=== PATIENT | female | born 1990 | race Caucasian/White ===

== ENCOUNTER 2020-04-06 06:30 | Inpatient (IN) ==
[2020-04-06] MEDS ORDERED: BETADINE SOLN ONE (06:50)
[2020-04-06] MEDS ORDERED: D5 1/2 NS 1L W PITOCIN 20 UNITS/L 20 UNITS/1,000 ML BAG IV ONE (06:51)
[2020-04-06] MEDS ORDERED: MORPHINE SULFATE INJ 2 MG INJ IVP PRN (06:52)
[2020-04-06] MEDS ORDERED: PITOCIN IVP ONE (06:52)
[2020-04-06] MEDS ORDERED: D5LR 1L W PITOCIN 10 UNITS/L 10 UNITS/1,000 ML BAG IV PRN (06:52)
[2020-04-06] MEDS ORDERED: REGLAN INJ 10 MG VIAL IVP PRN (06:52)
[2020-04-06] MEDS ORDERED: PHENERGAN INJ 25 MG IM PRN ×2 (06:52→15:43)
[2020-04-06] MEDS ORDERED: D5 1/2 NS 1000 ML 1,000 ML IV SCH (06:52)
[2020-04-06] MEDS ORDERED: NUBAIN INJ 200 MG VIAL MULTIDOSE IVP PRN (06:52)
[2020-04-06] MEDS ORDERED: FENTANYL INJ 100 mcg ONE ×2 (09:04→09:48)
[2020-04-06] MEDS ORDERED: LR 1000 ML IV 1,000 ML IV ONE (09:04)
[2020-04-06] MEDS ORDERED: FENTANYL 2 mcg/mL-ROPIV 0.1%-NS EPIDURAL 200 ML EPI ONE (09:06)
[2020-04-06] MEDS ORDERED: NAROPIN EPIDURAL 0.2% 100 ML ONE (09:48)
--- NOTE | 2020-04-06 09:56 | DR.OB ---
OB Quick Note - Assessment/Plan Assessment/Plan: L&D 04/06/20 at 7:30am S-No complaint. O-Afebrile,VSS JFT=470 with good LTV, +accel, no decel. CTX=q 2 1/2 to 3 min., mild by palpation CVX=2cm/50%/-1/VTX AROM with clear fluid. IUPC and FSE placed. A-IUP at 38 3/7 weeks for induction A1DM Hep C Opioid abuse P-Begin pitocin induction Anticipate
--- NOTE | 2020-04-06 12:18 | DR.OB ---
OB Quick Note - Assessment/Plan Assessment/Plan: L&D 04/06/20 at 12:10pm Pitocin=4mu/min. S-No complaint. O-Afebrile,VSS FCQ=891 with good LTV, +accel, no decel. CTX=q 1 1/2 to 2 min., about 45-55mmHg CVX=3cm/75%/0 A-IUP 38 3/7 weeks for induction A1DM HepC Opioid abuse P-Cont. pitocin induction Anticipate
--- NOTE | 2020-04-06 15:43 | DR.OB ---
OB Quick Note - Assessment/Plan Assessment/Plan: Delivery Note [employer] OF TECHNOLOGY 04/06/20 at 3:29pm Patient complete and pushing. Head delivered over intact perineum. Nuchal cord x 1 reduced. Nose and mouth bulb suctioned. Body delivered over intact perineum. Compound presentation with left hand to head. Cord clamped x 2 and cut. handed to attendant. Cord sent for gases. Placenta delivered spontaneously / intact / 3 vessel cord. No CVX / vaginal / perineal tear. Viable male infant, VTX/OA, wt=6'2" and 8/9, stable to NBN. Mother stable to RR. SDC=[id number].
[2020-04-06] MEDS ORDERED: D5 1/2 NS 1000 ML 1,000 ML with PITOCIN 20 UNITS IV SCH ×2 (16:00)
[2020-04-06] MEDS ORDERED: AMBIEN PO PRN (17:27)
[2020-04-06] MEDS ORDERED: DERMOPLAST PAIN RELIEF SPRAY TOP PRN (17:27)
[2020-04-06] MEDS ORDERED: MILK OF MAGNESIA PO PRN (17:27)
[2020-04-06] MEDS ORDERED: ADACEL or BOOSTRIX TDaP VACCINE IM ONE (17:27)
[2020-04-06] MEDS: KLONOPIN TAB 1 MG PO SCH (20:59)
[2020-04-06] MEDS: MOTRIN TAB 800 MG PO PRN (21:00)
[2020-04-06] MEDS: SUBOXONE TAB SL SCH (21:01)
[2020-04-07 05:29] LABS: HEMOGLOBIN 12.3 g/dL (12.0-16.0)
[2020-04-07] MEDS: KLONOPIN TAB 1 MG PO SCH ×2 (08:34→20:45)
[2020-04-07] MEDS: PRENATAL PLUS PO SCH (08:35)
[2020-04-07] MEDS: SUBOXONE TAB SL SCH ×3 (08:41→21:13)
[2020-04-07] MEDS: MOTRIN TAB 800 MG PO PRN ×2 (11:33→21:00)
[2020-04-08 08:38] VITALS: BP 102/62
[2020-04-08] MEDS: PRENATAL PLUS PO SCH (09:24)
[2020-04-08] MEDS: KLONOPIN TAB 1 MG PO SCH (09:24)
[2020-04-08] MEDS: SUBOXONE TAB SL SCH (10:55)
[2020-04-08] MEDS ORDERED: ADACEL or BOOSTRIX TDaP VACCINE IM ONE (13:00)
== END 2020-04-08 12:24 | disposition home or self-care (01) | DRG 806 ==
LOC: LD 06:37 → MED/SURG 17:15 → UNDODISIN 04-08 11:15
PROVIDERS: ADMIT Specialist; ATTEND Specialist
DX: B19.20 Unspecified viral hepatitis C without hepatic coma; F11.90 Opioid use, unspecified, uncomplicated; Z37.0 Single live birth; O98.42 Viral hepatitis complicating childbirth; Z23 Encounter for immunization; O99.323 Drug use complicating pregnancy, third trimester; Z3A.38 38 weeks gestation of pregnancy; O24.410 Gestational diabetes mellitus in pregnancy, diet controlled

== ENCOUNTER 2023-11-15 19:04 | Inpatient (IN) ==
--- NOTE | 2023-11-15 20:18 | DR.EXTPAIN ---
HPI Time seen Time Seen by Provider: 11/15/23 20:10 PCP Primary Care Physician: Dr. Latham Complaint/Symptoms Chief Complaint Doctor Comments: Patient has had an abscess x 2 months in her Distal Rt forearm. Patient has chronic swelling x 2 yrs in he Bilateral hands. She states that Dr Latham states that she has an autoimmune condition that he is trying to diagnose. Patient states that she has been given bactrim DS x 1 month but the the ulcers are still present.Patient denies: fever, extremity weakness, extremity numbness, extremity paresthesias. Chief Complaint:: C/O Abcess to Right Lower Lateral Arm Self Treatment fo Chief Complaint: Went to see MD today and sent to ED Source History Provided: Patient Mode of arrival Mode of Arrival: Ambulatory Timing Onset of Chief Complaint: 09/06/23 PMH PMH Past Medical History: Yes Past Medical History: Depression Past Medical History Comment: Blood Past Surgical History: Yes Surgical History: Ortho Surgery Past Surgical History Comment: Bilateral Hip Replacement Family History History of Family Medical Conditions: Yes Family Medical History: Cancer Social History Do you use any recreational Drugs:: No Infectious screening Have you traveled outside the country in the last 6 months?: Yes ([facility]) Travel History Location: Pt. traveled to the [facility] in September Isolation: Standard ROS Review of Systems Constitutional: No Symptoms Reported Eyes: No Symptoms Reported ENTM: No Symptoms Reported Respiratoy: No Symptoms Reported Cardiovascular: No Symptoms Reported Gastrointestinal/Abdominal: No Symptoms Reported Genitourinary: No Symptoms Reported Neurological: No Symptoms Reported Musculoskeletal: Forearm (distal Rt forearm ulcers (2)) Integumentary: No Symptoms Reported Hematologic/Lymphatic: No Symptoms Reported Endocrine: No Symptoms Reported Psychiatric: No Symptoms Reported All Other Systems: Reviewed and Negative PE Vital Signs Vitals: Vital Signs Temperature 98.9 F Pulse Rate 77 Respiratory Rate 20 Blood Pressure 111/70 O2 Sat by Pulse Oximetry 95 General Limitations: No Limitations General Appearance: Alert and In No Apparent Distress Head Head Exam: Normal Inspection Eyes Eye exam: Normal Appearance ENT ENT Exam: Normal Exam Neck Neck Exam: Normal Inspection Chest Chest Inspection: Normal Inspection Respiratory Respiratory Exam: Normal Lung Sounds Bilat Respiratory Exam: Bilateral: Clear to Auscultation Cardiovascular Cardiovascular Exam: Regular Rate and Normal Rhythm Abdominal Exam Abdominal Exam: Normal Inspection, Normal Bowel Sounds and Soft Extremities Extremities Exam: Tenderness (Rt distal Forearm) and Other (erythema Rt distal forearm and ulcerated lesions Flexor aspect of Rt distal forearm) Upper Extremities Forearm Exam: Tenderness (Rt distal), Erythema (Rt distal) and Other (2 ulcerations Rt distal) Back Back Exam: Normal Inspection Neurological Neurological Exam: Alert, Oriented X3 and CN II-XII Intact Psychiatric Psychiatric Exam: Normal Affect and Normal Mood Skin Skin Exam: Warm, Dry, Intact and Normal Color MDM Differential Diagnosis Differential Diagnosis: Other (cellulitis,abscess) COURSE Treatment Treatment: Dr Barraza was called to initiate iv access in Patient.He states that he will admit her to his service for debridement of the Rt distal forearm tomorrow.She will get Rocephin 1 gram im in ED. He would like patient to be NPO after midnight. Attempts were made to get iv access and labs drawn. Patient will get a picc line tomorrow and labs will be drawn at that time. Opioid Opioid Risk Tool Age (Sreedhar box if 16-45): Yes History of Preadolescent Sexual Abuse: No Total: 1 Total Score Risk Category: Low Risk Copyright: Brandon ROMERO predicting aberrant behaviors Discharge Plan Diagnosis Discharge Problem: Abscess of right forearm Discharge Plan Patient Disposition: 09 ADMITTED INPATIENT Condition: Stable Prescriptions: No Action oxycodone 10 mg tablet 10 mg PO Q6H PRN (Reason: pain) polyethylene glycol 3350 [ClearLax] 17 gram/dose powder 17 g PO QDAY furosemide 20 mg tablet 20 mg PO QDAY docusate sodium [Stool Softener] 100 mg capsule 100 mg PO BID methocarbamol 750 mg tablet 750 mg PO TID potassium chloride 20 mEq tablet,ER particles/crystals 20 meq PO QDAY citalopram 20 mg tablet 20 mg PO QDAY clonazepam 1 mg tablet 1 mg PO BID zinc sulfate 50 mg zinc (220 mg) tablet 50 mg PO QDAY Eliquis 2.5 mg tablet 2.5 mg PO BID ascorbic acid (vitamin C) 500 mg tablet 500 mg PO QDAY trazodone 50 mg tablet 50 mg PO QPM gabapentin 300 mg capsule 300 mg PO TID calcium carbonate-vitamin D3 250 mg-3.125 mcg (125 unit) tablet 1 tab PO BID ondansetron HCl 8 mg tablet 8 mg PO BID PRN citalopram 20 mg tablet 20 mg PO QDAY naproxen 500 mg tablet 500 mg PO BID ergocalciferol (vitamin D2) [Vitamin D2] 1,250 mcg (50,000 unit) Capsule 1,250 mcg PO QWEEK clindamycin HCl [Cleocin HCl] 300 mg capsule 300 mg PO Q6H Qty: 40 0RF hydrocodone-acetaminophen 10-325 mg tablet 1 tab PO Q6H MDD 4 Qty: 20 0RF Health Concerns: Post Hospitalization: new medications and changes needed to prevent readmission or further decline. Pt educated and given instructions on all concerns. Plan of Treatment: Continue with present treatment and follow up plan. Pt is to keep follow up appointment as instructed and take medications as ordered. Orders to Discharge Patient Discharge Orders: Transfer (Routine); Ordered 11/15/23 Ordered By: Cyndy Crane Follow ups/Referrals Follow ups/Referrals: NFD,None [Primary Care Provider] - 3 days Instructions Stand Alone Forms: Post Hospital Follow Up Care
[2023-11-15] MEDS: MAXIPIME VIAL 2 GRAMS 2 G in NS 100 ML IV 100 ML IV ONE (21:46)
[2023-11-15] MEDS: STERILE WATER IRRIGATION IR ONE (21:53)
[2023-11-15] MEDS: HYDROGEN PEROXIDE 3% EXT ONE (21:53)
[2023-11-15] MEDS: BACTROBAN TOPICAL OINT TOP ONE (21:53)
[2023-11-15] MEDS: ROCEPHIN VIAL 1 GRAM IM ONE (22:11)
[2023-11-15 22:59] LABS: BASOPHILS % (AUTO) 0.5 % (0.2-1.0); EOSINOPHILS # (AUTO) 0.1 x10^3/uL (0.0-0.2); HEMATOCRIT 35.8 % (36.0-47.0); HEMOGLOBIN 11.7 g/dL (12.0-16.0); LYMPHOCYTES # (AUTO) 2.1 X10^3/uL (1.3-2.9); LYMPHOCYTES % (AUTO) 26.2 % (21.0-51.0); MEAN CORPUSCULAR HEMOGLOBIN 28.6 pg (27.0-34.0); MEAN CORPUSCULAR HGB CONC 32.7 g/dL (33.0-35.0); MEAN CORPUSCULAR VOLUME 87.5 fL (80.0-100.0); MEAN PLATELET VOLUME 7.6 fL (7.4-11.0); MONOCYTES # (AUTO) 0.8 x10^3/uL (0.3-0.8); MONOCYTES % (AUTO) 9.7 % (0.0-13.0); NEUTROPHILS % (AUTO) 62.6 % (42.0-75.0); PLATELET COUNT 259 X10^3/uL (150.0-450.0); RED BLOOD COUNT 4.09 X10^6/uL (3.5-5.4); RED CELL DISTRIBUTION WIDTH 15.5 % (11.6-16.5); WHITE BLOOD COUNT 7.9 X10^3/uL (3.6-10.0)
[2023-11-15 23:08] LABS: ALANINE AMINOTRANSFERASE 23 Units/L (12-78); ALKALINE PHOSPHATASE 67 Units/L (46-116); ASPARTATE AMINO TRANSFERASE 20 Units/L (15-37); BLOOD UREA NITROGEN 20 mg/dL (7-18); CALCIUM 8.8 mg/dL (8.5-10.1); CARBON DIOXIDE 25.3 mmol/L (21-32); CHLORIDE 105 mmol/L (98-107); COR NA(FOR HYPERGLY) 141 mmol/L (136-145); CREATININE 1.16 mg/dL (0.55-1.02); GLUCOSE 121 mg/dL (65-99); POTASSIUM 3.8 mmol/L (3.5-5.1); SODIUM 140 mmol/L (136-145); TOTAL PROTEIN 7.7 g/dL (6.4-8.2); eGFR NON BLACK RACES 57 (>60)
[2023-11-15 23:23] VITALS: BMI 32.2
[2023-11-16] MEDS ORDERED: PERCOCET TAB 5/325 MG PO PRN (07:08)
[2023-11-16] MEDS: PERCOCET TAB 5/325 MG ONE (07:14)
[2023-11-16] MEDS: NEURONTIN CAP 300 MG PO SCH (07:15)
[2023-11-16] MEDS: NOZIN NASAL SANITIZER TP ONE (07:41)
[2023-11-16] MEDS: NS 1,000 ML IV 1,000 ML ONE (07:42)
[2023-11-16] MEDS ORDERED: ZOFRAN TAB 4 MG PO PRN (08:00)
[2023-11-16] MEDS: XYLOCAINE 1 % (PLAIN) ONE ×2 (08:39→09:27)
[2023-11-16] MEDS ORDERED: CELEXA PO SCH (09:00)
[2023-11-16] MEDS ORDERED: KETAMINE HCL ONE (09:15)
[2023-11-16] MEDS: DIPRIVAN VIAL 20 ML ONE (09:15)
[2023-11-16] MEDS: ANCEF VIAL 1 GRAM ONE (09:15)
[2023-11-16] MEDS: FENTANYL VIAL INJ 100 mcg ONE (09:15)
[2023-11-16] MEDS: VERSED ONE (09:15)
[2023-11-16] MEDS: NS 100 ML IV 100 ML ONE (09:15)
[2023-11-16] MEDS: BETADINE SOLN ONE (09:20)
[2023-11-16] MEDS: POLYMYXIN B SULFATE ONE (09:29)
[2023-11-16] MEDS: VANCOMYCIN IV *PREMIX 1 G/200 ML BAG 1 G/200 ML PIGGYBACK IV SCH (10:01)
--- NOTE | 2023-11-16 10:01 | RAD ---
EXAM:AP chest two viewsHISTORY:PICCCOMPARISON:06/28/2023 br.br.br.br spaces. The previously present right IJ line is no longer present. There is a new right PICC extending to the superior cavoatrial junction.IMPRESSION:As above.THIS IS AN ELECTRONICALLY VERIFIED FINAL REPORT11/16/2023 9:54 AM - Electronically signed by Carlos Vuong MD
--- NOTE | 2023-11-16 10:02 | DR.UPDATE ---
H&P Update Prescription drug monitoring program results: PDMP was not reviewed H&P Reviewed: Yes Any changes to H&P?: No Patient was examined?: Yes Vital Signs: Temp Pulse Pulse Resp BP BP BP 11/16/23 07:46 97.9 F 64 20 111/64 11/16/23 07:00 11/16/23 07:00 97.9 F 79 20 107/62 11/16/23 00:00 98.2 F 59 L 20 98/54 11/15/23 22:20 11/15/23 22:30 69 18 115/68 11/15/23 19:22 98.9 F 77 20 111/70 Pulse Ox O2 Del Method 11/16/23 07:46 98 Room Air 11/16/23 07:00 Room Air 11/16/23 07:00 99 Room Air 11/16/23 00:00 95 Room Air 11/15/23 22:20 Room Air 11/15/23 22:30 98 11/15/23 19:22 95 Procedures (ALL) - Central Line Placement PCM.CLCO: written consent Time out performed: Yes Patient placed pm monitor/pulse ox: Yes prep: mask, gown, gloves, other Centrial line prep: chlorhexidine scrub, sterile drapes applied Local anesthsia used: lidocane 1% Ultrasound used for placement: Yes (failed left attempt, r brachial v id'd via u/s) Central line lumen ininserted: double (5.5fr arrow, trimmed to 42cm, 2cm exposed) Post procedure: good blood return, all ports aspirated, flushed,capped, sterile dressing applied Post procedure xray: tip oc catheter in good position (appears svc, radiology report pending) Patient tolerated procedure: Yes Complications: none
[2023-11-16] MEDS: LASIX PO SCH (10:41)
[2023-11-16] MEDS: COLACE CAP 100 MG PO SCH (10:41)
[2023-11-16] MEDS: K-DUR TAB 20 MEQ PO SCH (10:41)
[2023-11-16] MEDS: CELEXA PO SCH (10:42)
[2023-11-16] MEDS: VITAMIN C PO SCH (10:44)
[2023-11-16] MEDS: K-DUR TAB 20 MEQ PO ONE (10:45)
[2023-11-16] MEDS: LASIX ONE (10:45)
[2023-11-16] MEDS: OSCAL+D or CALTRATE+D PO SCH (10:45)
[2023-11-16] MEDS: PERCOCET TAB 5/325 MG PO PRN (13:51)
[2023-11-16] MEDS: DESYREL PO SCH (20:40)
[2023-11-16] MEDS: HYDROGEN PEROXIDE 3% EXT PRN (23:26)
[2023-11-16] MEDS: BACTROBAN TOPICAL OINT TOP ONE (23:51)
[2023-11-17 06:00] LABS: BASOPHILS % (AUTO) 0.3 % (0.2-1.0); EOSINOPHILS # (AUTO) 0.1 x10^3/uL (0.0-0.2); EOSINOPHILS % (AUTO) 1.8 % (0.9-2.9); HEMATOCRIT 36.8 % (36.0-47.0); LYMPHOCYTES # (AUTO) 2.3 X10^3/uL (1.3-2.9); LYMPHOCYTES % (AUTO) 33.9 % (21.0-51.0); MEAN CORPUSCULAR HEMOGLOBIN 28.9 pg (27.0-34.0); MEAN CORPUSCULAR HGB CONC 32.6 g/dL (33.0-35.0); MEAN CORPUSCULAR VOLUME 88.6 fL (80.0-100.0); MEAN PLATELET VOLUME 7.4 fL (7.4-11.0); MONOCYTES # (AUTO) 0.5 x10^3/uL (0.3-0.8); MONOCYTES % (AUTO) 7.6 % (0.0-13.0); NEUTROPHILS # (AUTO) 3.8 x10^3/uL (2.2-4.8); NEUTROPHILS % (AUTO) 56.4 % (42.0-75.0); PLATELET COUNT 247 X10^3/uL (150.0-450.0); RED BLOOD COUNT 4.15 X10^6/uL (3.5-5.4); RED CELL DISTRIBUTION WIDTH 15.5 % (11.6-16.5); WHITE BLOOD COUNT 6.7 X10^3/uL (3.6-10.0)
[2023-11-17 06:14] LABS: ALANINE AMINOTRANSFERASE 18 Units/L (12-78); ALBUMIN 3.3 g/dL (3.4-5.0); ALKALINE PHOSPHATASE 62 Units/L (46-116); ASPARTATE AMINO TRANSFERASE 14 Units/L (15-37); BLOOD UREA NITROGEN 14 mg/dL (7-18); CALCIUM 8.8 mg/dL (8.5-10.1); CARBON DIOXIDE 25.3 mmol/L (21-32); CHLORIDE 106 mmol/L (98-107); COR CA(FOR HYPOALB) 9.4 mg/dL (8.5-10.1); COR NA(FOR HYPERGLY) 142 mmol/L (136-145); CREATININE 0.96 mg/dL (0.55-1.02); GLUCOSE 121 mg/dL (65-99); POTASSIUM 4.4 mmol/L (3.5-5.1); SODIUM 141 mmol/L (136-145); TOTAL PROTEIN 7.1 g/dL (6.4-8.2); eGFR NON BLACK RACES > 60 (>60)
[2023-11-17] MEDS: VITAMIN D (1.25MG) PO SCH (08:41)
--- NOTE | 2023-11-17 09:38 | DR.PROGNOT ---
HOSPITAL PROGRESS NOTE Progress Note for Day of: Progress Note Date: 11/17/23 Chief Complaint Chief Complaint: Feeling better today, still having significant pain at the right forearm open wound. Cultures so far are showing gram-positive cocci. Normal white count and patient is afebrile. Past Medical Family Social History Past Med/Fam/Surg Hx: No changes since H&P Allergies: Allergies Iodine and Iodide Containing Produc Allergy (Verified 06/28/23 19:04) latex Allergy (Verified 06/28/23 19:04) naloxone Allergy (Verified 11/15/23 22:39) Vital Signs Vital Signs: Vital Signs Temperature 97.9 F Temperature 98.2 F Pulse Rate [Left] 70 Pulse Rate [Left] 80 Respiratory Rate 19 Respiratory Rate 19 Respiratory Rate 16 Respiratory Rate 18 Respiratory Rate 19 Blood Pressure [Left Arm] 119/75 Blood Pressure [Left Arm] 98/63 O2 Sat by Pulse Oximetry 96 O2 Sat by Pulse Oximetry 94 Physical Exam Oriented: Normal Eyes: Normal Ear: Normal Nose: Normal Throat: Normal Respiratory: Normal Cardiovascular: Normal : Normal GI:Auscultation: Normal GI:Palpation: Normal Skin: Other (Wound seems to be healthy no evidence of necrosis or abscess formation.) Mood Description: Calm Speech Pattern: Clear and Appropriate Laboratory and Diagnostics 11/17/23 05:45 11/17/23 05:45 Labs: 11/15/23 20:58 Arm - Abscess Wound Culture - Preliminary 11/16/23 09:30 Wrist - Right Wound Gram Stain - Final Laboratory WBC 6.7 X10^3/uL (3.6-10.0) 11/17/23 05:45 RBC 4.15 X10^6/uL (3.5-5.4) 11/17/23 05:45 Hgb 12.0 g/dL (12.0-16.0) 11/17/23 05:45 Hct 36.8 % (36.0-47.0) 11/17/23 05:45 MCV 88.6 fL (80.0-100.0) 11/17/23 05:45 MCH 28.9 pg (27.0-34.0) 11/17/23 05:45 MCHC 32.6 g/dL (33.0-35.0) L 11/17/23 05:45 RDW 15.5 % (11.6-16.5) 11/17/23 05:45 Plt Count 247 X10^3/uL (150.0-450.0) 11/17/23 05:45 MPV 7.4 fL (7.4-11.0) 11/17/23 05:45 Neut % (Auto) 56.4 % (42.0-75.0) 11/17/23 05:45 Lymph % (Auto) 33.9 % (21.0-51.0) 11/17/23 05:45 [place] % (Auto) 7.6 % (0.0-13.0) 11/17/23 05:45 Eos % (Auto) 1.8 % (0.9-2.9) 11/17/23 05:45 Baso % (Auto) 0.3 % (0.2-1.0) 11/17/23 05:45 Neut # (Auto) 3.8 x10^3/uL (2.2-4.8) 11/17/23 05:45 Lymph # (Auto) 2.3 X10^3/uL (1.3-2.9) 11/17/23 05:45 [place] # (Auto) 0.5 x10^3/uL (0.3-0.8) 11/17/23 05:45 Eos # (Auto) 0.1 x10^3/uL (0.0-0.2) 11/17/23 05:45 Baso # (Auto) 0.0 X10^3/uL (0.0-0.1) 11/17/23 05:45 Absolute Nucleated RBC 0.1 /100WBC 11/17/23 05:45 Sodium 141 mmol/L (136-145) 11/17/23 05:45 Corrected Sodium 142 mmol/L (136-145) 11/17/23 05:45 Potassium 4.4 mmol/L (3.5-5.1) 11/17/23 05:45 Chloride 106 mmol/L (98-107) 11/17/23 05:45 Carbon Dioxide 25.3 mmol/L (21-32) 11/17/23 05:45 BUN 14 mg/dL (7-18) 11/17/23 05:45 Creatinine 0.96 mg/dL (0.55-1.02) 11/17/23 05:45 Est GFR (MDRD) Af Amer > 60 (>60) 11/17/23 05:45 Est GFR (MDRD) Non-Af > 60 (>60) 11/17/23 05:45 Glucose 121 mg/dL (65-99) H 11/17/23 05:45 Calcium 8.8 mg/dL (8.5-10.1) 11/17/23 05:45 Corrected Calcium 9.4 mg/dL (8.5-10.1) 11/17/23 05:45 Total Bilirubin 0.30 mg/dL (0.2-1.0) 11/17/23 05:45 AST 14 Units/L (15-37) L 11/17/23 05:45 ALT 18 Units/L (12-78) 11/17/23 05:45 Alkaline Phosphatase 62 Units/L (46-116) 11/17/23 05:45 Total Protein 7.1 g/dL (6.4-8.2) 11/17/23 05:45 Albumin 3.3 g/dL (3.4-5.0) L 11/17/23 05:45 Globulin 3.8 g/dL (2.5-4.5) 11/17/23 05:45 Albumin/Globulin Ratio 0.9 Ratio (1.1-2.1) L 11/17/23 05:45 Assessment and Plan 1: Infected ulcer distal right forearm, status post excisional debridement. 4 x 4 centimeter. To continue local care with the dressing changes, application of iodoform packing, 4 x 4 and [place], keep the arm elevated. IV antibiotics patient is on IV vancomycin pending final culture report. Problem Patient Problems: Patient Problems Abscess of right forearm (Acute) L02.413
[2023-11-17] MEDS ORDERED: NAPROSYN PO PRN (12:25)
[2023-11-17] MEDS: KLONOPIN TAB 1 MG PO SCH ×2 (13:27→19:48)
[2023-11-17] MEDS: CYMBALTA PO SCH (13:27)
[2023-11-17] MEDS: ROBAXIN PO SCH (13:40)
[2023-11-17] MEDS: BACTROBAN TOPICAL OINT TOP SCH (19:47)
[2023-11-17] MEDS: ZINC SULFATE PO SCH (19:48)
[2023-11-17] MEDS: MIRALAX POWDER (1 DOSE 17 G) PO SCH (19:49)
[2023-11-17 20:10] LABS: CREATININE 1.03 mg/dL (0.55-1.02)
[2023-11-17] MEDS: PHARMACY COMMENT IV ONE (20:29)
[2023-11-17] MEDS: DESYREL PO SCH (21:28)
[2023-11-17] MEDS: ELIQUIS PO SCH (21:28)
[2023-11-18 06:07] LABS: BASOPHILS % (AUTO) 0.4 % (0.2-1.0); EOSINOPHILS # (AUTO) 0.2 x10^3/uL (0.0-0.2); EOSINOPHILS % (AUTO) 2.1 % (0.9-2.9); HEMATOCRIT 35.9 % (36.0-47.0); HEMOGLOBIN 11.8 g/dL (12.0-16.0); LYMPHOCYTES # (AUTO) 2.3 X10^3/uL (1.3-2.9); LYMPHOCYTES % (AUTO) 30.5 % (21.0-51.0); MEAN CORPUSCULAR HEMOGLOBIN 29.1 pg (27.0-34.0); MEAN CORPUSCULAR HGB CONC 32.8 g/dL (33.0-35.0); MEAN CORPUSCULAR VOLUME 88.6 fL (80.0-100.0); MEAN PLATELET VOLUME 7.8 fL (7.4-11.0); MONOCYTES # (AUTO) 0.6 x10^3/uL (0.3-0.8); MONOCYTES % (AUTO) 8.7 % (0.0-13.0); NEUTROPHILS # (AUTO) 4.3 x10^3/uL (2.2-4.8); NEUTROPHILS % (AUTO) 58.3 % (42.0-75.0); PLATELET COUNT 241 X10^3/uL (150.0-450.0); RED BLOOD COUNT 4.06 X10^6/uL (3.5-5.4); RED CELL DISTRIBUTION WIDTH 15.3 % (11.6-16.5); WHITE BLOOD COUNT 7.4 X10^3/uL (3.6-10.0)
[2023-11-18 06:25] LABS: ALANINE AMINOTRANSFERASE 19 Units/L (12-78); ALBUMIN 3.2 g/dL (3.4-5.0); ALKALINE PHOSPHATASE 57 Units/L (46-116); ASPARTATE AMINO TRANSFERASE 12 Units/L (15-37); BLOOD UREA NITROGEN 14 mg/dL (7-18); CALCIUM 8.4 mg/dL (8.5-10.1); CHLORIDE 105 mmol/L (98-107); COR NA(FOR HYPERGLY) 141 mmol/L (136-145); CREATININE 0.83 mg/dL (0.55-1.02); GLUCOSE 114 mg/dL (65-99); SODIUM 141 mmol/L (136-145); TOTAL PROTEIN 6.9 g/dL (6.4-8.2); eGFR NON BLACK RACES > 60 (>60)
--- NOTE | 2023-11-18 08:51 | DR.PROGNOT ---
HOSPITAL PROGRESS NOTE Progress Note for Day of: Progress Note Date: 11/18/23 Chief Complaint Chief Complaint: Feeling better today, still having significant pain at the right forearm open wound. Cultures so far are showing gram-positive cocci. Normal white count and patient is afebrile. Past Medical Family Social History Past Med/Fam/Surg Hx: No changes since H&P Allergies: Allergies Iodine and Iodide Containing Produc Allergy (Verified 06/28/23 19:04) latex Allergy (Verified 06/28/23 19:04) naloxone Allergy (Verified 11/15/23 22:39) Vital Signs Vital Signs: Vital Signs Temperature 98.4 F Pulse Rate [Left] 64 Respiratory Rate 19 Respiratory Rate 19 Respiratory Rate 18 Respiratory Rate 22 Blood Pressure [Left Arm] 101/67 O2 Sat by Pulse Oximetry 95 Physical Exam Oriented: Normal Eyes: Normal Ear: Normal Nose: Normal Throat: Normal Respiratory: Normal Cardiovascular: Normal : Normal GI:Auscultation: Normal GI:Palpation: Normal Skin: Wound (mottled skin around the edges. no necrosis ) and Other (no necrosis but no healing or granulation ,) Mood Description: Calm Speech Pattern: Clear and Appropriate Laboratory and Diagnostics 11/18/23 05:35 11/18/23 05:35 Labs: 11/15/23 22:40 Blood Blood Culture - Preliminary 11/16/23 09:30 Wrist - Right Wound Gram Stain - Final 11/16/23 09:30 Wrist - Right Wound Culture - Preliminary 11/15/23 20:58 Arm - Abscess Wound Culture - Preliminary Laboratory WBC 7.4 X10^3/uL (3.6-10.0) 11/18/23 05:35 RBC 4.06 X10^6/uL (3.5-5.4) 11/18/23 05:35 Hgb 11.8 g/dL (12.0-16.0) L 11/18/23 05:35 Hct 35.9 % (36.0-47.0) L 11/18/23 05:35 MCV 88.6 fL (80.0-100.0) 11/18/23 05:35 MCH 29.1 pg (27.0-34.0) 11/18/23 05:35 MCHC 32.8 g/dL (33.0-35.0) L 11/18/23 05:35 RDW 15.3 % (11.6-16.5) 11/18/23 05:35 Plt Count 241 X10^3/uL (150.0-450.0) 11/18/23 05:35 MPV 7.8 fL (7.4-11.0) 11/18/23 05:35 Neut % (Auto) 58.3 % (42.0-75.0) 11/18/23 05:35 Lymph % (Auto) 30.5 % (21.0-51.0) 11/18/23 05:35 [place] % (Auto) 8.7 % (0.0-13.0) 11/18/23 05:35 Eos % (Auto) 2.1 % (0.9-2.9) 11/18/23 05:35 Baso % (Auto) 0.4 % (0.2-1.0) 11/18/23 05:35 Neut # (Auto) 4.3 x10^3/uL (2.2-4.8) 11/18/23 05:35 Lymph # (Auto) 2.3 X10^3/uL (1.3-2.9) 11/18/23 05:35 [place] # (Auto) 0.6 x10^3/uL (0.3-0.8) 11/18/23 05:35 Eos # (Auto) 0.2 x10^3/uL (0.0-0.2) 11/18/23 05:35 Baso # (Auto) 0.0 X10^3/uL (0.0-0.1) 11/18/23 05:35 Absolute Nucleated RBC 0.0 /100WBC 11/18/23 05:35 Sodium 141 mmol/L (136-145) 11/18/23 05:35 Corrected Sodium 141 mmol/L (136-145) 11/18/23 05:35 Potassium 4.0 mmol/L (3.5-5.1) 11/18/23 05:35 Chloride 105 mmol/L (98-107) 11/18/23 05:35 Carbon Dioxide 27.0 mmol/L (21-32) 11/18/23 05:35 BUN 14 mg/dL (7-18) 11/18/23 05:35 Creatinine 0.83 mg/dL (0.55-1.02) 11/18/23 05:35 Est GFR (MDRD) Af Amer > 60 (>60) 11/18/23 05:35 Est GFR (MDRD) Non-Af > 60 (>60) 11/18/23 05:35 Glucose 114 mg/dL (65-99) H 11/18/23 05:35 Calcium 8.4 mg/dL (8.5-10.1) L 11/18/23 05:35 Corrected Calcium 9.0 mg/dL (8.5-10.1) 11/18/23 05:35 Total Bilirubin 0.10 mg/dL (0.2-1.0) L 11/18/23 05:35 AST 12 Units/L (15-37) L 11/18/23 05:35 ALT 19 Units/L (12-78) 11/18/23 05:35 Alkaline Phosphatase 57 Units/L (46-116) 11/18/23 05:35 Total Protein 6.9 g/dL (6.4-8.2) 11/18/23 05:35 Albumin 3.2 g/dL (3.4-5.0) L 11/18/23 05:35 Globulin 3.7 g/dL (2.5-4.5) 11/18/23 05:35 Albumin/Globulin Ratio 0.9 Ratio (1.1-2.1) L 11/18/23 05:35 Vancomycin Trough 15.0 ug/mL (15-20) 11/17/23 19:40 Assessment and Plan 1: Infected ulcer distal right forearm, status post excisional debridement. 4 x 4 centimeter. To continue local care with the dressing changes, application of Xeroform , ABD and [place]ot[place], keep the arm elevated. IV antibiotics patient is on IV vancomycin pending final culture report. Lovenox 40 daily Problem Patient Problems: Patient Problems Abscess of right forearm (Acute) L02.413
[2023-11-18] MEDS: MORPHINE SULFATE INJ 2 MG INJ IVP PRN (11:16)
[2023-11-18] MEDS: LOVENOX INJ 40 MG SYR SC SCH (12:38)
[2023-11-18] MEDS: NS 250 ML IV 25 ML IV PRN (21:03)
[2023-11-19 06:44] LABS: BASOPHILS % (AUTO) 0.6 % (0.2-1.0); EOSINOPHILS # (AUTO) 0.2 x10^3/uL (0.0-0.2); EOSINOPHILS % (AUTO) 2.6 % (0.9-2.9); HEMATOCRIT 36.9 % (36.0-47.0); HEMOGLOBIN 12.1 g/dL (12.0-16.0); LYMPHOCYTES # (AUTO) 2.5 X10^3/uL (1.3-2.9); LYMPHOCYTES % (AUTO) 34.7 % (21.0-51.0); MEAN CORPUSCULAR HGB CONC 32.7 g/dL (33.0-35.0); MEAN CORPUSCULAR VOLUME 88.6 fL (80.0-100.0); MEAN PLATELET VOLUME 7.8 fL (7.4-11.0); MONOCYTES # (AUTO) 0.5 x10^3/uL (0.3-0.8); MONOCYTES % (AUTO) 7.4 % (0.0-13.0); NEUTROPHILS % (AUTO) 54.7 % (42.0-75.0); PLATELET COUNT 244 X10^3/uL (150.0-450.0); RED BLOOD COUNT 4.17 X10^6/uL (3.5-5.4); RED CELL DISTRIBUTION WIDTH 15.2 % (11.6-16.5); WHITE BLOOD COUNT 7.3 X10^3/uL (3.6-10.0)
[2023-11-19 07:06] LABS: ALANINE AMINOTRANSFERASE 17 Units/L (12-78); ALBUMIN 3.2 g/dL (3.4-5.0); ALKALINE PHOSPHATASE 56 Units/L (46-116); ASPARTATE AMINO TRANSFERASE 14 Units/L (15-37); BLOOD UREA NITROGEN 15 mg/dL (7-18); CALCIUM 8.6 mg/dL (8.5-10.1); CHLORIDE 105 mmol/L (98-107); COR CA(FOR HYPOALB) 9.2 mg/dL (8.5-10.1); COR NA(FOR HYPERGLY) 140 mmol/L (136-145); CREATININE 0.91 mg/dL (0.55-1.02); GLUCOSE 114 mg/dL (65-99); POTASSIUM 3.9 mmol/L (3.5-5.1); SODIUM 140 mmol/L (136-145); TOTAL PROTEIN 7.1 g/dL (6.4-8.2); eGFR NON BLACK RACES > 60 (>60)
[2023-11-19 08:30] LABS: CREATININE 0.94 mg/dL (0.55-1.02); VANCOMYCIN,TROUGH 18.4 ug/mL (15-20)
[2023-11-20 06:18] LABS: BASOPHILS # (AUTO) 0.1 X10^3/uL (0.0-0.1); BASOPHILS % (AUTO) 0.8 % (0.2-1.0); EOSINOPHILS # (AUTO) 0.2 x10^3/uL (0.0-0.2); EOSINOPHILS % (AUTO) 2.3 % (0.9-2.9); HEMATOCRIT 36.6 % (36.0-47.0); HEMOGLOBIN 11.8 g/dL (12.0-16.0); LYMPHOCYTES # (AUTO) 2.5 X10^3/uL (1.3-2.9); MEAN CORPUSCULAR HEMOGLOBIN 28.6 pg (27.0-34.0); MEAN CORPUSCULAR HGB CONC 32.3 g/dL (33.0-35.0); MEAN CORPUSCULAR VOLUME 88.6 fL (80.0-100.0); MEAN PLATELET VOLUME 7.6 fL (7.4-11.0); MONOCYTES # (AUTO) 0.7 x10^3/uL (0.3-0.8); MONOCYTES % (AUTO) 9.7 % (0.0-13.0); NEUTROPHILS # (AUTO) 4.1 x10^3/uL (2.2-4.8); NEUTROPHILS % (AUTO) 54.2 % (42.0-75.0); PLATELET COUNT 239 X10^3/uL (150.0-450.0); RED BLOOD COUNT 4.14 X10^6/uL (3.5-5.4); RED CELL DISTRIBUTION WIDTH 15.3 % (11.6-16.5); WHITE BLOOD COUNT 7.6 X10^3/uL (3.6-10.0)
[2023-11-20 06:33] LABS: ALANINE AMINOTRANSFERASE 17 Units/L (12-78); ALBUMIN 3.2 g/dL (3.4-5.0); ALKALINE PHOSPHATASE 55 Units/L (46-116); ASPARTATE AMINO TRANSFERASE 12 Units/L (15-37); BLOOD UREA NITROGEN 17 mg/dL (7-18); CALCIUM 8.9 mg/dL (8.5-10.1); CARBON DIOXIDE 26.9 mmol/L (21-32); CHLORIDE 107 mmol/L (98-107); COR CA(FOR HYPOALB) 9.5 mg/dL (8.5-10.1); CREATININE 0.79 mg/dL (0.55-1.02); GLUCOSE 98 mg/dL (65-99); SODIUM 142 mmol/L (136-145); TOTAL PROTEIN 6.9 g/dL (6.4-8.2); eGFR NON BLACK RACES > 60 (>60)
--- NOTE | 2023-11-20 11:39 | DR.PROGNOT ---
HOSPITAL PROGRESS NOTE Progress Note for Day of: Progress Note Date: 11/19/23 Chief Complaint Chief Complaint: Still complaining of severe pain of her right forearm, no evidence of necrosis but has erythema around the edges with moderate cellulitis. Final culture report showed MRSA. Has edema involving both upper and lower extremities. Past Medical Family Social History Past Med/Fam/Surg Hx: No changes since H&P Allergies: Allergies Iodine and Iodide Containing Produc Allergy (Verified 06/28/23 19:04) latex Allergy (Verified 06/28/23 19:04) naloxone Allergy (Verified 11/15/23 22:39) Vital Signs Vital Signs: Vital Signs Temperature 98.3 F Temperature 98.0 F Pulse Rate [Left] 69 Pulse Rate [Left] 50 Respiratory Rate 20 Respiratory Rate 18 Respiratory Rate 18 Respiratory Rate 18 Respiratory Rate 18 Respiratory Rate 20 Respiratory Rate 18 Respiratory Rate 18 Blood Pressure [Left Arm] 105/59 Blood Pressure [Left Arm] 107/57 O2 Sat by Pulse Oximetry 97 O2 Sat by Pulse Oximetry 95 Physical Exam Oriented: Normal Eyes: Normal Ear: Normal Nose: Normal Throat: Normal Respiratory: Normal Cardiovascular: Normal : Normal GI:Auscultation: Normal GI:Palpation: Normal Skin: Wound (mottled skin around the edges. no necrosis ) and Other (no necrosis but no healing or granulation ,) Mood Description: Calm Speech Pattern: Clear and Appropriate Laboratory and Diagnostics 11/20/23 05:53 11/20/23 05:53 Labs: 11/16/23 09:30 Wrist - Right Wound Gram Stain - Final 11/16/23 09:30 Wrist - Right Wound Culture - Preliminary 11/15/23 20:58 Arm - Abscess Wound Culture - Final Methicillin Resis Staph Aureus 11/15/23 22:40 Blood Blood Culture - Preliminary Laboratory WBC 7.6 X10^3/uL (3.6-10.0) 11/20/23 05:53 RBC 4.14 X10^6/uL (3.5-5.4) 11/20/23 05:53 Hgb 11.8 g/dL (12.0-16.0) L 11/20/23 05:53 Hct 36.6 % (36.0-47.0) 11/20/23 05:53 MCV 88.6 fL (80.0-100.0) 11/20/23 05:53 MCH 28.6 pg (27.0-34.0) 11/20/23 05:53 MCHC 32.3 g/dL (33.0-35.0) L 11/20/23 05:53 RDW 15.3 % (11.6-16.5) 11/20/23 05:53 Plt Count 239 X10^3/uL (150.0-450.0) 11/20/23 05:53 MPV 7.6 fL (7.4-11.0) 11/20/23 05:53 Neut % (Auto) 54.2 % (42.0-75.0) 11/20/23 05:53 Lymph % (Auto) 33.0 % (21.0-51.0) 11/20/23 05:53 [place] % (Auto) 9.7 % (0.0-13.0) 11/20/23 05:53 Eos % (Auto) 2.3 % (0.9-2.9) 11/20/23 05:53 Baso % (Auto) 0.8 % (0.2-1.0) 11/20/23 05:53 Neut # (Auto) 4.1 x10^3/uL (2.2-4.8) 11/20/23 05:53 Lymph # (Auto) 2.5 X10^3/uL (1.3-2.9) 11/20/23 05:53 [place] # (Auto) 0.7 x10^3/uL (0.3-0.8) 11/20/23 05:53 Eos # (Auto) 0.2 x10^3/uL (0.0-0.2) 11/20/23 05:53 Baso # (Auto) 0.1 X10^3/uL (0.0-0.1) 11/20/23 05:53 Absolute Nucleated RBC 0.1 /100WBC 11/20/23 05:53 Sodium 142 mmol/L (136-145) 11/20/23 05:53 Corrected Sodium TNP 11/20/23 05:53 Potassium 4.0 mmol/L (3.5-5.1) 11/20/23 05:53 Chloride 107 mmol/L (98-107) 11/20/23 05:53 Carbon Dioxide 26.9 mmol/L (21-32) 11/20/23 05:53 BUN 17 mg/dL (7-18) 11/20/23 05:53 Creatinine 0.79 mg/dL (0.55-1.02) 11/20/23 05:53 Est GFR (MDRD) Af Amer > 60 (>60) 11/20/23 05:53 Est GFR (MDRD) Non-Af > 60 (>60) 11/20/23 05:53 Glucose 98 mg/dL (65-99) 11/20/23 05:53 Calcium 8.9 mg/dL (8.5-10.1) 11/20/23 05:53 Corrected Calcium 9.5 mg/dL (8.5-10.1) 11/20/23 05:53 Total Bilirubin 0.20 mg/dL (0.2-1.0) 11/20/23 05:53 AST 12 Units/L (15-37) L 11/20/23 05:53 ALT 17 Units/L (12-78) 11/20/23 05:53 Alkaline Phosphatase 55 Units/L (46-116) 11/20/23 05:53 Total Protein 6.9 g/dL (6.4-8.2) 11/20/23 05:53 Albumin 3.2 g/dL (3.4-5.0) L 11/20/23 05:53 Globulin 3.7 g/dL (2.5-4.5) 11/20/23 05:53 Albumin/Globulin Ratio 0.9 Ratio (1.1-2.1) L 11/20/23 05:53 Vancomycin Trough 18.4 ug/mL (15-20) 11/19/23 05:27 Assessment and Plan 1: Infected ulcer distal right forearm, status post excisional debridement. 4 x 4 centimeter. Positive for MRSA. To continue local care with the dressing changes, application of Xeroform , ABD and [place], keep the arm elevated. IV antibiotics patient is on IV vancomycin . Problem Patient Problems: Patient Problems Abscess of right forearm (Acute) L02.413
--- NOTE | 2023-11-20 11:46 | DR.PROGNOT ---
HOSPITAL PROGRESS NOTE Progress Note for Day of: Progress Note Date: 11/20/23 Chief Complaint Chief Complaint: Still complaining of severe pain of her right forearm requiring strong medications. no evidence of necrosis but has erythema around the edges with moderate cellulitis and edema of the hand one to two + Final culture report showed MRSA. Patient has a chronic anxiety and depression. No changes in her medical history. Will have medical evaluation. Past Medical Family Social History Past Med/Fam/Surg Hx: No changes since H&P Allergies: Allergies Iodine and Iodide Containing Produc Allergy (Verified 06/28/23 19:04) latex Allergy (Verified 06/28/23 19:04) naloxone Allergy (Verified 11/15/23 22:39) Vital Signs Vital Signs: Vital Signs Temperature 98.3 F Temperature 98.0 F Pulse Rate [Left] 69 Pulse Rate [Left] 50 Respiratory Rate 20 Respiratory Rate 18 Respiratory Rate 18 Respiratory Rate 18 Respiratory Rate 18 Respiratory Rate 20 Respiratory Rate 18 Respiratory Rate 18 Blood Pressure [Left Arm] 105/59 Blood Pressure [Left Arm] 107/57 O2 Sat by Pulse Oximetry 97 O2 Sat by Pulse Oximetry 95 Physical Exam Oriented: Normal Eyes: Normal Ear: Normal Nose: Normal Throat: Normal Respiratory: Normal Cardiovascular: Normal : Normal GI:Auscultation: Normal GI:Palpation: Normal Skin: Wound (mottled skin around the edges. no necrosis ) and Other (no necrosis but no healing or granulation ,) Mood Description: Calm Speech Pattern: Clear and Appropriate Laboratory and Diagnostics 11/20/23 05:53 11/20/23 05:53 Labs: 11/16/23 09:30 Wrist - Right Wound Gram Stain - Final 11/16/23 09:30 Wrist - Right Wound Culture - Preliminary 11/15/23 20:58 Arm - Abscess Wound Culture - Final Methicillin Resis Staph Aureus 11/15/23 22:40 Blood Blood Culture - Preliminary Laboratory WBC 7.6 X10^3/uL (3.6-10.0) 11/20/23 05:53 RBC 4.14 X10^6/uL (3.5-5.4) 11/20/23 05:53 Hgb 11.8 g/dL (12.0-16.0) L 11/20/23 05:53 Hct 36.6 % (36.0-47.0) 11/20/23 05:53 MCV 88.6 fL (80.0-100.0) 11/20/23 05:53 MCH 28.6 pg (27.0-34.0) 11/20/23 05:53 MCHC 32.3 g/dL (33.0-35.0) L 11/20/23 05:53 RDW 15.3 % (11.6-16.5) 11/20/23 05:53 Plt Count 239 X10^3/uL (150.0-450.0) 11/20/23 05:53 MPV 7.6 fL (7.4-11.0) 11/20/23 05:53 Neut % (Auto) 54.2 % (42.0-75.0) 11/20/23 05:53 Lymph % (Auto) 33.0 % (21.0-51.0) 11/20/23 05:53 [place] % (Auto) 9.7 % (0.0-13.0) 11/20/23 05:53 Eos % (Auto) 2.3 % (0.9-2.9) 11/20/23 05:53 Baso % (Auto) 0.8 % (0.2-1.0) 11/20/23 05:53 Neut # (Auto) 4.1 x10^3/uL (2.2-4.8) 11/20/23 05:53 Lymph # (Auto) 2.5 X10^3/uL (1.3-2.9) 11/20/23 05:53 [place] # (Auto) 0.7 x10^3/uL (0.3-0.8) 11/20/23 05:53 Eos # (Auto) 0.2 x10^3/uL (0.0-0.2) 11/20/23 05:53 Baso # (Auto) 0.1 X10^3/uL (0.0-0.1) 11/20/23 05:53 Absolute Nucleated RBC 0.1 /100WBC 11/20/23 05:53 Sodium 142 mmol/L (136-145) 11/20/23 05:53 Corrected Sodium TNP 11/20/23 05:53 Potassium 4.0 mmol/L (3.5-5.1) 11/20/23 05:53 Chloride 107 mmol/L (98-107) 11/20/23 05:53 Carbon Dioxide 26.9 mmol/L (21-32) 11/20/23 05:53 BUN 17 mg/dL (7-18) 11/20/23 05:53 Creatinine 0.79 mg/dL (0.55-1.02) 11/20/23 05:53 Est GFR (MDRD) Af Amer > 60 (>60) 11/20/23 05:53 Est GFR (MDRD) Non-Af > 60 (>60) 11/20/23 05:53 Glucose 98 mg/dL (65-99) 11/20/23 05:53 Calcium 8.9 mg/dL (8.5-10.1) 11/20/23 05:53 Corrected Calcium 9.5 mg/dL (8.5-10.1) 11/20/23 05:53 Total Bilirubin 0.20 mg/dL (0.2-1.0) 11/20/23 05:53 AST 12 Units/L (15-37) L 11/20/23 05:53 ALT 17 Units/L (12-78) 11/20/23 05:53 Alkaline Phosphatase 55 Units/L (46-116) 11/20/23 05:53 Total Protein 6.9 g/dL (6.4-8.2) 11/20/23 05:53 Albumin 3.2 g/dL (3.4-5.0) L 11/20/23 05:53 Globulin 3.7 g/dL (2.5-4.5) 11/20/23 05:53 Albumin/Globulin Ratio 0.9 Ratio (1.1-2.1) L 11/20/23 05:53 Vancomycin Trough 18.4 ug/mL (15-20) 11/19/23 05:27 Assessment and Plan 1: Infected ulcer distal right forearm, positive for MRSA. Status post excisional debridement. 4 x 4 centimeter. To continue local care with the dressing changes, application of Xeroform , ABD and [place], keep the arm elevated. IV antibiotics patient is on IV vancomycin . 2: Anxiety and depression. Patient is on several medications for that to be evaluated by Dr. Rolle. 3: Chronic edema both upper and lower extremities Problem Patient Problems: Patient Problems Abscess of right forearm (Acute) L02.413
[2023-11-20 20:58] LABS: CREATININE 0.87 mg/dL (0.55-1.02); VANCOMYCIN,TROUGH 14.9 ug/mL (15-20)
--- NOTE | 2023-11-20 21:19 | DR.CONSULT ---
CONSULT Consultation for Day of: Date: 11/20/23 Chief Complaint Chief Complaint: Medical management of general medical problems Allergies Allergies Allergy/AdvReac Type Severity Reaction Status Date / Time Iodine and Iodide Containing Allergy Verified 06/28/23 19:04 Produc latex Allergy Verified 06/28/23 19:04 naloxone Allergy Verified 11/15/23 22:39 History of Present Illness History of Present Illness: This is a pleasant 32-year-old white female who is a patient of Dr. Manjinder Latham here in [place], [place]. The patient was admitted a few days ago for an abscess of her right medial forearm by our general surgeon Dr. Corey. He has done I&D and debridement. I been consulted because the patient has an underlying connective tissue disorder that is caused her to have chronic bilateral upper extremity edema. She also has history of anxiety, depression, bilateral hip pain with history of bilateral hip arthroplasties and chronic musculoskeletal pain issues. She also has insomnia and takes multiple medications. She currently has a PICC line and is receiving IV vancomycin. Culture results show that she is positive for MRSA and the vancomycin shows a LIZA of 1. There is other antibiotics that we will also work against this if needed. She tells me that Dr. Latham has been doing a workup for autoimmune disorder and she is currently seeing bone char puller Dr. Herring in [place], [place] also. The patient reports that her pain is fairly well-controlled at this time. She is also receiving oral duloxetine and clonazepam for her depression and anxiety. We will continue her on these at this time and I will follow the patient with you. Thank you for this interesting consultation Past Medical History Past Medical History: Anxiety, Arthritis and Depression Additional Medical History: Suspected connective tissue disorder, insomnia, chronic musculoskeletal pain syndrome and chronic upper bilateral extremity edema. Past Surgical History Surgical History: Ortho Surgery Family History Family Medical History: Cancer and Hypertension Social History Does patient currently use any type of tobacco product: Yes Type of Tobacco Use: Vape Alcohol Use: None Drug Use: None Medications Home Medications: Iodine and Iodide Containing Produc Allergy (Verified 06/28/23 19:04) latex Allergy (Verified 06/28/23 19:04) naloxone Allergy (Verified 11/15/23 22:39) CONTINUE taking the following medications apixaban 2.5 mg tablet (Eliquis) 2.5 mg PO BID 11/16/23 [History] ascorbic acid (vitamin C) 500 mg tablet 500 mg PO QDAY 11/16/23 [History] buprenorphine HCl 8 mg sublingual tablet 8 mg sublingual TID 11/16/23 [History] citalopram 20 mg tablet 20 mg PO QDAY 11/16/23 [History] clonazepam 1 mg tablet 1 mg PO BID 11/16/23 [History] duloxetine 30 mg capsule,delayed release 30 mg PO QDAY 11/16/23 [History] furosemide 20 mg tablet 20 mg PO QDAY 11/16/23 [History] megestrol 625 mg/5 mL (125 mg/mL) oral suspension 5 ml PO BID 11/16/23 [History] methocarbamol 750 mg tablet 750 mg PO TID 11/16/23 [History] naproxen 500 mg tablet 500 mg PO BID 11/16/23 [History] prasterone (dhea) 25 mg capsule 25 mg PO QDAY 11/16/23 [History] sulfamethoxazole 800 mg-trimethoprim 160 mg tablet 1 tab PO BID 11/16/23 [History] trazodone 100 mg tablet 100 mg PO QPM 11/16/23 [History] Review of Systems Constitutional: Malaise Eyes: No Symptoms Reported ENT: No Symptoms Reported Respiratory: No Symptoms Reported Cardiovascular: No Symptoms Reported Gastrointestinal: No Symptoms Reported Genitourinary: No Symptoms Reported Musculoskeletal: Shoulder Pain, Arm Pain, Back Pain, Leg Pain and Foot Pain Skin: Lesions, Bruising, Wound and Ecchymosis; denies Rash or Jaundice Neurological: Weakness and Numbness; denies Incoordination, Change in Speech, Confusion or Seizures Physical Exam Vital Signs: Vital Signs Temperature 98 F Temperature 98.7 F Pulse Rate [Left] 66 Pulse Rate [Left] 51 Respiratory Rate 17 Respiratory Rate 20 Respiratory Rate 18 Respiratory Rate 18 Respiratory Rate 18 Respiratory Rate 18 Respiratory Rate 20 Respiratory Rate 18 Respiratory Rate 18 Respiratory Rate 18 Blood Pressure [Left Arm] 110/57 Blood Pressure [Left Arm] 105/64 O2 Sat by Pulse Oximetry 94 O2 Sat by Pulse Oximetry 96 Oriented: Normal, Time, Person and Place; negative Not Oriented or Unable to test Eyes: Normal Ear: Normal Nose: Normal Throat: Normal Respiratory: Clear Throughout Cardiovascular: Normal Auscultation: Bowel Sounds: Normal Palpation: Normal Tenderness: Normal Skin: Red, Tender, Wound and Bruising Musculoskeletal: Right, Forearm, Hip, Swelling and Tender Psychiatric: Normal Affect: Normal Speech Pattern: Clear and Appropriate Plan (1) Abscess of right forearm: Status: Acute Narrative Support Text: Abscess positive for MRSA sensitive to vancomycin with LIZA of 1 Plan: Continue IV vancomycin secondary to MRSA. (2) Hx of blood clots: Status: None Plan: Continue Eliquis (3) Autoimmune disease: Status: None Plan: Current workup being done by primary care physician Dr. Manjinder Latham and bone char puller Dr. Herring in [place], [place]. (4) Opioid abuse: Status: Acute Plan: Pain control but monitor for misuse. (5) Mixed anxiety and depressive disorder: Status: Acute Plan: Continue duloxetine 30 mg daily and clonazepam. (6) Hepatitis C: Status: Acute
[2023-11-21 06:23] LABS: BASOPHILS % (AUTO) 0.4 % (0.2-1.0); EOSINOPHILS # (AUTO) 0.2 x10^3/uL (0.0-0.2); EOSINOPHILS % (AUTO) 2.3 % (0.9-2.9); HEMATOCRIT 34.5 % (36.0-47.0); HEMOGLOBIN 11.2 g/dL (12.0-16.0); LYMPHOCYTES # (AUTO) 2.2 X10^3/uL (1.3-2.9); MEAN CORPUSCULAR HEMOGLOBIN 28.6 pg (27.0-34.0); MEAN CORPUSCULAR HGB CONC 32.3 g/dL (33.0-35.0); MEAN CORPUSCULAR VOLUME 88.4 fL (80.0-100.0); MEAN PLATELET VOLUME 7.7 fL (7.4-11.0); MONOCYTES # (AUTO) 0.7 x10^3/uL (0.3-0.8); MONOCYTES % (AUTO) 10.4 % (0.0-13.0); NEUTROPHILS # (AUTO) 3.9 x10^3/uL (2.2-4.8); NEUTROPHILS % (AUTO) 55.9 % (42.0-75.0); PLATELET COUNT 228 X10^3/uL (150.0-450.0); RED BLOOD COUNT 3.91 X10^6/uL (3.5-5.4)
[2023-11-21 06:31] LABS: ALANINE AMINOTRANSFERASE 22 Units/L (12-78); ALKALINE PHOSPHATASE 54 Units/L (46-116); ASPARTATE AMINO TRANSFERASE 14 Units/L (15-37); BLOOD UREA NITROGEN 16 mg/dL (7-18); CALCIUM 8.4 mg/dL (8.5-10.1); CARBON DIOXIDE 25.7 mmol/L (21-32); CHLORIDE 107 mmol/L (98-107); COR CA(FOR HYPOALB) 9.2 mg/dL (8.5-10.1); COR NA(FOR HYPERGLY) 142 mmol/L (136-145); CREATININE 0.82 mg/dL (0.55-1.02); GLUCOSE 134 mg/dL (65-99); POTASSIUM 3.9 mmol/L (3.5-5.1); SODIUM 141 mmol/L (136-145); TOTAL PROTEIN 6.8 g/dL (6.4-8.2); eGFR NON BLACK RACES > 60 (>60)
--- NOTE | 2023-11-21 08:53 | DR.PROGNOT ---
HOSPITAL PROGRESS NOTE Progress Note for Day of: Progress Note Date: 11/21/23 Chief Complaint Chief Complaint: Still complaining of severe pain of her right forearm requiring strong medications. no evidence of necrosis but has erythema around the edges with moderate cellulitis and edema of the hands 1 to 2 + Final culture report showed MRSA. Patient has a chronic anxiety and depression. h/o using strong narcotics No changes in her medical history. Will have medical evaluation. Past Medical Family Social History Past Med/Fam/Surg Hx: No changes since H&P Allergies: Allergies Iodine and Iodide Containing Produc Allergy (Verified 06/28/23 19:04) latex Allergy (Verified 06/28/23 19:04) naloxone Allergy (Verified 11/15/23 22:39) Vital Signs Vital Signs: Vital Signs Temperature 97.9 F Pulse Rate [Left] 55 Respiratory Rate 20 Respiratory Rate 18 Respiratory Rate 20 Respiratory Rate 20 Respiratory Rate 20 Blood Pressure [Left Arm] 110/62 O2 Sat by Pulse Oximetry 93 Physical Exam Oriented: Normal, Time, Person and Place; negative Not Oriented or Unable to test Eyes: Normal Ear: Normal Nose: Normal Throat: Normal Respiratory: Normal Cardiovascular: Normal : Normal GI:Auscultation: Normal GI:Palpation: Normal GI: Tenderness: Normal Skin: Red, Tender, Wound, Bruising and Other (very slow healing , two areas of dusky looking skin edges upper and lateral edges .) Musculoskeletal: Right, Forearm, Hip, Swelling and Tender Psychiatric: Normal Mood Description: Calm Affect: Normal Speech Pattern: Clear and Appropriate Laboratory and Diagnostics 11/21/23 05:35 11/21/23 05:35 Labs: 11/16/23 09:30 Wrist - Right Wound Gram Stain - Final 11/16/23 09:30 Wrist - Right Wound Culture - Preliminary 11/15/23 20:58 Arm - Abscess Wound Culture - Final Methicillin Resis Staph Aureus 11/15/23 22:40 Blood Blood Culture - Preliminary Laboratory WBC 7.0 X10^3/uL (3.6-10.0) 11/21/23 05:35 RBC 3.91 X10^6/uL (3.5-5.4) 11/21/23 05:35 Hgb 11.2 g/dL (12.0-16.0) L 11/21/23 05:35 Hct 34.5 % (36.0-47.0) L 11/21/23 05:35 MCV 88.4 fL (80.0-100.0) 11/21/23 05:35 MCH 28.6 pg (27.0-34.0) 11/21/23 05:35 MCHC 32.3 g/dL (33.0-35.0) L 11/21/23 05:35 RDW 15.0 % (11.6-16.5) 11/21/23 05:35 Plt Count 228 X10^3/uL (150.0-450.0) 11/21/23 05:35 MPV 7.7 fL (7.4-11.0) 11/21/23 05:35 Neut % (Auto) 55.9 % (42.0-75.0) 11/21/23 05:35 Lymph % (Auto) 31.0 % (21.0-51.0) 11/21/23 05:35 [place] % (Auto) 10.4 % (0.0-13.0) 11/21/23 05:35 Eos % (Auto) 2.3 % (0.9-2.9) 11/21/23 05:35 Baso % (Auto) 0.4 % (0.2-1.0) 11/21/23 05:35 Neut # (Auto) 3.9 x10^3/uL (2.2-4.8) 11/21/23 05:35 Lymph # (Auto) 2.2 X10^3/uL (1.3-2.9) 11/21/23 05:35 [place] # (Auto) 0.7 x10^3/uL (0.3-0.8) 11/21/23 05:35 Eos # (Auto) 0.2 x10^3/uL (0.0-0.2) 11/21/23 05:35 Baso # (Auto) 0.0 X10^3/uL (0.0-0.1) 11/21/23 05:35 Absolute Nucleated RBC 0.0 /100WBC 11/21/23 05:35 Sodium 141 mmol/L (136-145) 11/21/23 05:35 Corrected Sodium 142 mmol/L (136-145) 11/21/23 05:35 Potassium 3.9 mmol/L (3.5-5.1) 11/21/23 05:35 Chloride 107 mmol/L (98-107) 11/21/23 05:35 Carbon Dioxide 25.7 mmol/L (21-32) 11/21/23 05:35 BUN 16 mg/dL (7-18) 11/21/23 05:35 Creatinine 0.82 mg/dL (0.55-1.02) 11/21/23 05:35 Est GFR (MDRD) Af Amer > 60 (>60) 11/21/23 05:35 Est GFR (MDRD) Non-Af > 60 (>60) 11/21/23 05:35 Glucose 134 mg/dL (65-99) H 11/21/23 05:35 Calcium 8.4 mg/dL (8.5-10.1) L 11/21/23 05:35 Corrected Calcium 9.2 mg/dL (8.5-10.1) 11/21/23 05:35 Total Bilirubin 0.10 mg/dL (0.2-1.0) L 11/21/23 05:35 AST 14 Units/L (15-37) L 11/21/23 05:35 ALT 22 Units/L (12-78) 11/21/23 05:35 Alkaline Phosphatase 54 Units/L (46-116) 11/21/23 05:35 Total Protein 6.8 g/dL (6.4-8.2) 11/21/23 05:35 Albumin 3.0 g/dL (3.4-5.0) L 11/21/23 05:35 Globulin 3.8 g/dL (2.5-4.5) 11/21/23 05:35 Albumin/Globulin Ratio 0.8 Ratio (1.1-2.1) L 11/21/23 05:35 Vancomycin Trough 14.9 ug/mL (15-20) L 11/20/23 20:34 Assessment and Plan 1: Infected ulcer distal right forearm, positive for MRSA. Status post excisional debridement. 4 x 4 centimeter. To continue local care with the dressing changes, application of Xeroform , ABD and [place], keep the arm elevated. IV antibiotics patient is on IV vancomycin . 2: Anxiety and depression. Patient is on several medications for that to be evaluated by Dr. Aquilino. 3: Chronic edema both upper and lower extremities Problem Patient Problems: Patient Problems Abscess of right forearm (Acute) L02.413
[2023-11-22 06:04] LABS: BASOPHILS % (AUTO) 0.6 % (0.2-1.0); EOSINOPHILS # (AUTO) 0.1 x10^3/uL (0.0-0.2); EOSINOPHILS % (AUTO) 2.1 % (0.9-2.9); HEMATOCRIT 34.4 % (36.0-47.0); HEMOGLOBIN 11.1 g/dL (12.0-16.0); LYMPHOCYTES # (AUTO) 2.3 X10^3/uL (1.3-2.9); LYMPHOCYTES % (AUTO) 32.8 % (21.0-51.0); MEAN CORPUSCULAR HEMOGLOBIN 28.7 pg (27.0-34.0); MEAN CORPUSCULAR HGB CONC 32.3 g/dL (33.0-35.0); MEAN CORPUSCULAR VOLUME 88.8 fL (80.0-100.0); MEAN PLATELET VOLUME 7.7 fL (7.4-11.0); MONOCYTES # (AUTO) 0.7 x10^3/uL (0.3-0.8); MONOCYTES % (AUTO) 9.9 % (0.0-13.0); NEUTROPHILS # (AUTO) 3.8 x10^3/uL (2.2-4.8); NEUTROPHILS % (AUTO) 54.6 % (42.0-75.0); PLATELET COUNT 241 X10^3/uL (150.0-450.0); RED BLOOD COUNT 3.88 X10^6/uL (3.5-5.4); RED CELL DISTRIBUTION WIDTH 15.2 % (11.6-16.5)
[2023-11-22 06:06] LABS: ERYTHROCYTE SEDIMENTATION RATE 17 MM/HOUR (0-20)
[2023-11-22 06:29] LABS: ALANINE AMINOTRANSFERASE 29 Units/L (12-78); ALKALINE PHOSPHATASE 62 Units/L (46-116); ASPARTATE AMINO TRANSFERASE 20 Units/L (15-37); BLOOD UREA NITROGEN 13 mg/dL (7-18); CALCIUM 8.7 mg/dL (8.5-10.1); CARBON DIOXIDE 26.4 mmol/L (21-32); CHLORIDE 105 mmol/L (98-107); COR CA(FOR HYPOALB) 9.5 mg/dL (8.5-10.1); CREATININE 0.84 mg/dL (0.55-1.02); GLUCOSE 91 mg/dL (65-99); MAGNESIUM 1.8 mg/dL (2.0-2.9); POTASSIUM 3.8 mmol/L (3.5-5.1); SODIUM 141 mmol/L (136-145); TOTAL PROTEIN 6.7 g/dL (6.4-8.2); eGFR NON BLACK RACES > 60 (>60)
[2023-11-22] MEDS ORDERED: CONSULT PHARMACY - POTASSIUM & MAGNESIUM XX SCH (07:00)
[2023-11-22] MEDS ORDERED: K-DUR TAB 20 MEQ PO SCH (07:00)
[2023-11-22 07:57] VITALS: O2SAT 95
[2023-11-22] MEDS: MAG-OX TAB PO SCH (08:37)
[2023-11-22 12:09] VITALS: BP 86/56; PULSE 61; RESP 18; TEMP 97.8
== END 2023-11-22 13:30 | disposition home or self-care (01) | DRG 572 ==
LOC: ER 19:04 → U 22:07 → MED/SURG 11-16 11:44
PROVIDERS: ADMIT Surgery; ATTEND Surgery
DX: R53.1 Weakness; R60.0 Localized edema; F41.8 Other specified anxiety disorders; B95.62 Methicillin resistant Staphylococcus aureus infection as the cause of diseases classified elsewhere; F32.89 Other specified depressive episodes; R20.0 Anesthesia of skin; L03.113 Cellulitis of right upper limb; Z65.8 Other specified problems related to psychosocial circumstances; Z59.82 Transportation insecurity; L02.413 Cutaneous abscess of right upper limb